=== PATIENT | male | born 1995 | race Caucasian/White ===

== ENCOUNTER → 2021-04-02 | Outpatient (CLI) | payer BC ==
[~2021-04-02] MED LIST: AUGMENTIN 400 M1 CTB PO; CLARITIN REDITA10 MG PO; MULTIPLE VITAMI1 CAP PO; NKHM; ZITHROMAX Z PA250 MG PO
== END | disposition home or self-care (01) ==
LOC: COVID19 16:24
PROVIDERS: ATTEND Internal Medicine
DX: U07.1 COVID-19 (principal)